=== PATIENT | male | born 2000 | race Caucasian/White ===

== ENCOUNTER 2021-04-07 10:57 | Emergency (ER) | payer MEDICAID, OTHER ==
[~2021-04-07] VITALS: Ht 177.8 cm; Wt 65.0 kg
[2021-04-07 11:24] VITALS: BP 117/72
== END 2021-04-07 17:09 | disposition left against medical advice (07) ==
LOC: ER 10:58
DX: K92.1 Melena (principal); Z53.21 Procedure and treatment not carried out due to patient leaving prior to being seen by health care provider